=== PATIENT | female | born 1940 | race Caucasian/White ===

== ENCOUNTER → 2018-12-07 | Outpatient (CLI) | payer MEDICAID ==
[~2018-12-07] MED LIST: AMBIEN5 MG PO; ASPIRIN81 M1 PO; BACTRIM 400 MG-1 TAB PO; BACTRIM DS 8001 TA1 PO; CIPRO250 MG PO; CIPRO500 MG PO; DAILY VITE W/IR1 TA1 PO; DITROPAN XL5 MG PO; DITROPAN5 MG PO; DULCOLAX10 M1 RC; EFFEXOR XR75 M1 PO; FOSAMAX70 M1 PO; HYDROCODONE BIT1 T11 PO; MELATONIN5 M1 SL; METFORMIN HYDR500 MG PO; MOM30 M1 PO; NYSTATIN60 GM T; Oscal,Oyster S500 MG PO; PRAVASTATIN SOD20 MG PO; PRILOSEC20 M1 PO; PRINIVIL20 MG PO; PROTONIX40 MG PO; PYRIDIUM200 MG PO; SERTRALINE25 MG PO; TYLENOL ARTHRI650 MG; ULTRAM50 MG PO; VICODIN 5/500 505 MG PO; VITAMIN D34000 UNIT PO; ZOCOR10 MG PO; [UNRECOGNIZED DRUG - OTHER] PO; [UNRECOGNIZED DRUG - OTHER] PO
== END | disposition home or self-care (01) ==
LOC: ORTHO 00:58
DX: M16.11 Unilateral primary osteoarthritis, right hip (principal); M79.651 Pain in right thigh

== ENCOUNTER 2024-01-12 13:20 | Inpatient (IN) | payer MEDICAID ==
[~2024-01-12] VITALS: Ht 165.1 cm; Wt 79.4 kg
[2024-01-12] VITALS (12 sets, daily range): BP systolic 107–125; BP diastolic 54–65
[~2024-01-12 13:20] MED LIST changes: +ARTIFICIAL TEAR1514 OP; +B-12500 MC1 PO; +CYMBALTA60 MG PO; +DULCOLAX10 M1 R; +GLUCAGON EMERGEN1 M1 IJ; +HEMMOREX-HC25 MG R; +INSULIN GL100 UNIT/1 SQ; +Ipratropium Brom3 ML INH; +MELATONIN3 MG PO; +MILK OF MA400 MG/53 PO; +MYLANTA COAT-C355 ML PO; +RIVASTIGMINE TAR6 M1 PO; +SEPTDS PO; +TYLENOL325 M1 PO; +VITAMIN D350 MC2 GT; +VOLTAREN ARTHRI20 GM T; +XALATAN 0.005%2.5 ML INTRAOC
[2024-01-12 14:15] LABS: HEMATOCRIT 20.8 % (37.0-47.0)
[2024-01-12 14:22] LABS: ACT PARTIAL THROMBO TIME 27.3 SECONDS (20.0-32.1)
[2024-01-12] MEDS ORDERED: Pantoprazole Sodium 40 MG VIAL IV ONE (14:45)
[2024-01-12] MEDS ORDERED: BISACODYL 5 MG TAB PO PRN (15:30)
[2024-01-12] MEDS ORDERED: Ondansetron Hydrochloride 4 MG/2 ML VIAL IV PRN (15:30)
[2024-01-12] MEDS ORDERED: DEXTROSE 10 % IN WATER 250 ML IV PRN (15:30)
[2024-01-12] MEDS ORDERED: BISACODYL 10 MG SUPP R PRN (15:30)
[2024-01-12] MEDS ORDERED: ACETAMINOPHEN 325 MG TAB PO PRN ×2 (15:30)
[2024-01-12] MEDS ORDERED: SODIUM CHLORIDE 0.9% 1,000 ML IV ONE (15:40)
[2024-01-12] MEDS ORDERED: INSULIN LISPRO 1 UNIT/0.01 ML SQ SCH (16:30)
[2024-01-12] MEDS ORDERED: Rivastigmine Tartrate 3 MG CAP PO SCH (22:00)
[2024-01-12 22:04] LABS: HEMATOCRIT 21.3 % (37.0-47.0); MEAN CELL VOLUME 91.8 fl (81.0-99.0); MEAN CORPUSCULAR HGB 28.9 pg (27.0-31.0); MEAN CORPUSCULAR HGB CONC 31.5 g/dl (33.0-37.0); MEAN PLATELET VOLUME 8.8 fl (9.6-12.3); PLATELET COUNT AUTOMATED 113 10*3/uL (130-400); RED BLOOD COUNT 2.32 10*6/uL (4.10-5.10); RED CELL DISTRI WIDTH 16.8 % (0-14.5); WHITE BLOOD COUNT 4.8 10*3/uL (4.8-10.8)
[2024-01-12 22:08] LABS: MANUAL DIFF REFLEX YES
[2024-01-12] MEDS ORDERED: SODIUM CHLORIDE 0.9% 500 ML IV ONE (23:07)
[2024-01-12 23:16] LABS: TOTAL CELLS COUNTED 100 #CELLS
[2024-01-12 23:17] LABS: PLATELET SUFFICIENCY LOW (NORMAL)
[2024-01-12 23:19] LABS: OVALOCYTES FEW; ROULEAUX SLIGHT
[2024-01-13] VITALS (9 sets, daily range): BP systolic 105–139; BP diastolic 51–73
[2024-01-13 05:54] LABS: BILIRUBIN Negative (Negative); BLOOD Negative (Negative); CLARITY Clear (Clear); COLOR Yellow (Yellow); GLUCOSE Negative (Negative); KETONE Negative (Negative); LEUKO ESTERASE Negative (Negative); NITRITE Negative (Negative); PH 5.5 (4.5-8.0); UROBILINOGEN 0.2 E.U./dl (0.0-1.0)
[2024-01-13] MEDS ORDERED: Pantoprazole Sodium 40 MG TAB PO SCH (06:00)
[2024-01-13 06:38] LABS: BASO % 0.4 % (0.0-1.0); EOS # 0.2 10*3/uL (0.0-0.4); EOS % 3.1 % (1.0-4.0); HEMATOCRIT 24.2 % (37.0-47.0); LYMPH # 1.6 10*3/uL (1.3-4.4); LYMPH % 30.3 % (27.0-41.0); MEAN CELL VOLUME 91.3 fl (81.0-99.0); MEAN CORPUSCULAR HGB 28.7 pg (27.0-31.0); MEAN CORPUSCULAR HGB CONC 31.4 g/dl (33.0-37.0); MEAN PLATELET VOLUME 9.2 fl (9.6-12.3); MONO # 0.4 10*3/uL (0.1-1.0); MONO % 8.1 % (3.0-9.0); NEUT % 57.5 % (47.0-73.0); PLATELET COUNT AUTOMATED 122 10*3/uL (130-400); RED BLOOD COUNT 2.65 10*6/uL (4.10-5.10); WHITE BLOOD COUNT 5.2 10*3/uL (4.8-10.8)
[2024-01-13 06:41] LABS: BACTERIA 1+
[2024-01-13 07:15] LABS: ALKALINE PHOSPHATASE 75 U/L (46-116); BUN 48 mg/dl (9-23); CHLORIDE 102 mmol/L (98-107); POTASSIUM 4.1 mmol/L (3.4-5.1); TOTAL PROTEIN 6.5 gm/dL (6.0-8.0)
[2024-01-13 07:27] LABS: VITAMIN D, 25-HYDROXY 96.8 ng/mL (30-100)
[2024-01-13] MEDS ORDERED: Insulin Glargine, Recombinan 1 UNIT/0.01 ML SC SCH (07:30)
[2024-01-13 07:31] LABS: SGPT/ALT < 7 U/L (5-49)
[2024-01-13] MEDS ORDERED: SODIUM CHLORIDE 0.9% 1,000 ML IV ONE (07:50)
[2024-01-13] MEDS ORDERED: CYANOCOBALAMIN 500 MCG TAB PO SCH (10:00)
[2024-01-13] MEDS ORDERED: Duloxetine Hydrochloride 60 MG CAP PO SCH (10:00)
[2024-01-13] MEDS ORDERED: Menthol/Zinc Oxide 4 GM THIN T SCH (18:00)
[2024-01-14] VITALS: BP 141/72
[2024-01-14 06:16] LABS: BASO % 0.3 % (0.0-1.0); EOS # 0.2 10*3/uL (0.0-0.4); EOS % 3.4 % (1.0-4.0); HEMATOCRIT 25.1 % (37.0-47.0); LYMPH # 1.7 10*3/uL (1.3-4.4); LYMPH % 29.5 % (27.0-41.0); MEAN CELL VOLUME 90.3 fl (81.0-99.0); MEAN CORPUSCULAR HGB 29.5 pg (27.0-31.0); MEAN CORPUSCULAR HGB CONC 32.7 g/dl (33.0-37.0); MEAN PLATELET VOLUME 9.5 fl (9.6-12.3); MONO # 0.5 10*3/uL (0.1-1.0); MONO % 9.3 % (3.0-9.0); NEUT # 3.3 10*3/uL (2.3-7.9); NEUT % 57.2 % (47.0-73.0); PLATELET COUNT AUTOMATED 120 10*3/uL (130-400); RED BLOOD COUNT 2.78 10*6/uL (4.10-5.10); RED CELL DISTRI WIDTH 16.7 % (0-14.5); WHITE BLOOD COUNT 5.8 10*3/uL (4.8-10.8)
[2024-01-14 07:20] LABS: POTASSIUM 4.3 mmol/L (3.4-5.1)
[2024-01-14 08:00] VITALS: BP 140/60
[2024-01-14 08:11] LABS: HEMOGOLBIN A1C 5.3 % (4.8-5.6)
== END 2024-01-14 12:40 | DRG 422 ==
LOC: ED 13:20 → 4E 14:46 → EDHOLD 14:46 → 4E 01-13 14:13
PROVIDERS: Emergency Medicine; Registered Nurse; ADMIT Internal Medicine; ATTEND Internal Medicine
PROC: 30233N1 Transfusion of Nonautologous Red Blood Cells into Peripheral Vein, Percutaneous Approach (ICD-10-PCS; principal; 2024-01-12)
DX: E86.0 Dehydration (principal); E43 Unspecified severe protein-calorie malnutrition; D63.1 Anemia in chronic kidney disease; I12.9 Hypertensive chronic kidney disease with stage 1 through stage 4 chronic kidney disease, or unspecified chronic kidney disease; N18.4 Chronic kidney disease, stage 4 (severe); E83.52 Hypercalcemia; F03.90 Unspecified dementia, unspecified severity, without behavioral disturbance, psychotic disturbance, mood disturbance, and anxiety; I25.10 Atherosclerotic heart disease of native coronary artery without angina pectoris; F32.A Depression, unspecified; K57.90 Diverticulosis of intestine, part unspecified, without perforation or abscess without bleeding; M81.0 Age-related osteoporosis without current pathological fracture; D64.9 Anemia, unspecified; E78.5 Hyperlipidemia, unspecified; E11.22 Type 2 diabetes mellitus with diabetic chronic kidney disease; Z66 Do not resuscitate; Z91.040 Latex allergy status; Z83.3 Family history of diabetes mellitus; Z82.49 Family history of ischemic heart disease and other diseases of the circulatory system; Z90.49 Acquired absence of other specified parts of digestive tract; Z68.29 Body mass index [BMI] 29.0-29.9, adult

== ENCOUNTER 2024-01-22 22:22 | Inpatient (IN) | payer MEDICAID ==
[~2024-01-22] VITALS: Ht 152.4 cm; Wt 74.8 kg
[2024-01-22] MEDS ORDERED: SODIUM CHLORIDE 0.9% 500 ML IV ONE (22:35)
[2024-01-22 22:43] VITALS: BP 109/49
[2024-01-22 22:50] LABS: BASO % 0.5 % (0.0-1.0); EOS # 0.1 10*3/uL (0.0-0.4); EOS % 3.1 % (1.0-4.0); HEMATOCRIT 23.4 % (37.0-47.0); LYMPH # 1.2 10*3/uL (1.3-4.4); LYMPH % 31.9 % (27.0-41.0); MEAN CORPUSCULAR HGB 28.9 pg (27.0-31.0); MEAN CORPUSCULAR HGB CONC 32.5 g/dl (33.0-37.0); MEAN PLATELET VOLUME 9.8 fl (9.6-12.3); MONO # 0.4 10*3/uL (0.1-1.0); MONO % 11.2 % (3.0-9.0); PLATELET COUNT AUTOMATED 137 10*3/uL (130-400); RED BLOOD COUNT 2.63 10*6/uL (4.10-5.10); RED CELL DISTRI WIDTH 15.5 % (0-14.5); WHITE BLOOD COUNT 3.8 10*3/uL (4.8-10.8)
[2024-01-22 23:31] LABS: POTASSIUM 4.3 mmol/L (3.4-5.1)
[2024-01-23] VITALS (8 sets, daily range): BP systolic 80–114; BP diastolic 23–60
[2024-01-23] MEDS ORDERED: Acetaminophen/Hydrocodone 5 MG/325 MG TABLET PO PRN (00:45)
[2024-01-23] MEDS ORDERED: Ondansetron Hydrochloride 4 MG/2 ML VIAL IV PRN (00:45)
[2024-01-23] MEDS ORDERED: MORPHINE Sulfate 2 MG/ML SYR IV PRN (00:45)
[2024-01-23] MEDS ORDERED: DEXTROSE 10 % IN WATER 250 ML IV PRN (01:05)
[2024-01-23] MEDS ORDERED: SODIUM CHLORIDE 0.9% 1,000 ML IV ONE ×2 (01:05→15:55)
[2024-01-23] MEDS ORDERED: DEXTROSE 10 % IN WATER 250 ML IV ONE (01:20)
[2024-01-23] MEDS ORDERED: DAILY PROBIOTI250 MG PO (06:33)
[2024-01-23] MEDS ORDERED: VANCOCIN125 MG PO (06:35)
[2024-01-23] MEDS ORDERED: INSULIN LISPRO 1 UNIT/0.01 ML SQ SCH (07:30)
[2024-01-23 09:55] LABS: BILIRUBIN Negative (Negative); BLOOD 2+ (Negative); CLARITY Turbid (Clear); COLOR Yellow (Yellow); GLUCOSE Negative (Negative); KETONE Negative (Negative); LEUKO ESTERASE 3+ (Negative); NITRITE Negative (Negative); PH 6.5 (4.5-8.0); SPECIFIC GRAVITY 1.015 (1.001-1.030); UROBILINOGEN 0.2 E.U./dl (0.0-1.0)
[2024-01-23] MEDS ORDERED: HEPARIN SODIUM 5,000 UNIT/ML VIAL SC SCH (10:00)
[2024-01-23] MEDS ORDERED: VANCOMYCIN HCL 125 MG CAPSULE PO SCH (10:00)
[2024-01-23 10:12] LABS: BACTERIA 2+; WBC TNTC wbc/hpf (0-5)
[2024-01-23] MEDS ORDERED: Albuterol Sulf/Ipratropium 3 ML VIAL NEB PRN (13:30)
[2024-01-23] MEDS ORDERED: Menthol/Zinc Oxide 4 GM THIN T PRN (13:35)
[2024-01-23] MEDS ORDERED: HEEL PROTECTOR DEVICE ONE (14:31)
[2024-01-23] MEDS ORDERED: FOAM BANDAGE 1 EACH BANDAGE T ONE (14:31)
[2024-01-23] MEDS ORDERED: FOAM BANDAGE HEEL T ONE (14:31)
[2024-01-23] MEDS ORDERED: CHAIR CUSHION DEVICE ONE (14:32)
[2024-01-23] MEDS ORDERED: Lactobacillus Acidophilus/LA 1 TAB TAB PO SCH (18:00)
[2024-01-23] MEDS ORDERED: Ceftriaxone Sodium 1 GM in SYRINGE INFUSION 10 ML IV SCH (18:00)
[2024-01-23] MEDS ORDERED: Midodrine Hydrochloride 5 MG TAB PO ONE (20:50)
[2024-01-23] MEDS ORDERED: Menthol/Zinc Oxide 4 GM THIN T SCH (22:00)
[2024-01-23] MEDS ORDERED: Rivastigmine Tartrate 3 MG CAP PO SCH (22:00)
[2024-01-23] MEDS ORDERED: DICLOFENAC SODIUM 100 GM TUBE T SCH (22:00)
[2024-01-24 00:21] VITALS: BP 96/45
[2024-01-24] MEDS ORDERED: ZOLEDRONIC ACID IV ONE (02:35)
[2024-01-24] MEDS ORDERED: SODIUM CHLORIDE 0.9% IV ONE (02:35)
[2024-01-24 04:30] VITALS: BP 113/44
[2024-01-24 06:09] LABS: BASO % 0.3 % (0.0-1.0); EOS # 0.2 10*3/uL (0.0-0.4); EOS % 4.3 % (1.0-4.0); LYMPH # 1.4 10*3/uL (1.3-4.4); LYMPH % 41.3 % (27.0-41.0); MEAN CORPUSCULAR HGB 29.1 pg (27.0-31.0); MEAN CORPUSCULAR HGB CONC 31.7 g/dl (33.0-37.0); MEAN PLATELET VOLUME 9.5 fl (9.6-12.3); MONO # 0.4 10*3/uL (0.1-1.0); MONO % 10.6 % (3.0-9.0); NEUT # 1.5 10*3/uL (2.3-7.9); NEUT % 42.9 % (47.0-73.0); PLATELET COUNT AUTOMATED 110 10*3/uL (130-400); RED BLOOD COUNT 2.61 10*6/uL (4.10-5.10); RED CELL DISTRI WIDTH 15.6 % (0-14.5); WHITE BLOOD COUNT 3.5 10*3/uL (4.8-10.8)
[2024-01-24 06:32] LABS: ALKALINE PHOSPHATASE 64 U/L (46-116); CHLORIDE 102 mmol/L (98-107); POTASSIUM 4.3 mmol/L (3.4-5.1); TOTAL PROTEIN 6.4 gm/dL (6.0-8.0)
[2024-01-24 06:49] LABS: BUN 51 mg/dl (9-23); SGPT/ALT < 7 U/L (5-49)
[2024-01-24 08:00] VITALS: BP 109/56
[2024-01-24] MEDS ORDERED: CYANOCOBALAMIN 500 MCG TAB PO SCH (10:00)
[2024-01-24] MEDS ORDERED: methylPREDNISolone sod succ 125 MG VIAL IV SCH (10:00)
[2024-01-24] MEDS ORDERED: Cholecalciferol 2,000 UNIT TABLET (50 MCG) PO SCH (10:00)
[2024-01-24] MEDS ORDERED: Duloxetine Hydrochloride 60 MG CAP PO SCH (10:00)
[2024-01-24] MEDS ORDERED: SODIUM CHLORIDE 0.9% 100 ML BAG IV ONE (11:53)
[2024-01-24 12:00] VITALS: BP 130/55
[2024-01-24] MEDS ORDERED: SODIUM CHLORIDE 0.9% 1,000 ML IV SCH (15:00)
[2024-01-24 16:00] VITALS: BP 145/55
[2024-01-24 20:00] VITALS: BP 129/75
[2024-01-25] VITALS: BP 147/72
[2024-01-25] MEDS ORDERED: FOAM BANDAGE 1 EACH BANDAGE T ONE ×2 (00:59→08:51)
[2024-01-25 06:45] LABS: BASO % 0.2 % (0.0-1.0); HEMATOCRIT 22.6 % (37.0-47.0); LYMPH # 1.4 10*3/uL (1.3-4.4); LYMPH % 32.9 % (27.0-41.0); MEAN CORPUSCULAR HGB 28.7 pg (27.0-31.0); MEAN CORPUSCULAR HGB CONC 31.9 g/dl (33.0-37.0); MEAN PLATELET VOLUME 9.9 fl (9.6-12.3); MONO # 0.3 10*3/uL (0.1-1.0); MONO % 7.1 % (3.0-9.0); NEUT # 2.6 10*3/uL (2.3-7.9); NEUT % 59.1 % (47.0-73.0); PLATELET COUNT AUTOMATED 114 10*3/uL (130-400); RED BLOOD COUNT 2.51 10*6/uL (4.10-5.10); RED CELL DISTRI WIDTH 15.2 % (0-14.5); WHITE BLOOD COUNT 4.4 10*3/uL (4.8-10.8)
[2024-01-25 06:46] LABS: POTASSIUM 4.6 mmol/L (3.4-5.1)
[2024-01-25 08:00] VITALS: BP 129/56
[2024-01-25 12:00] VITALS: BP 132/54
[2024-01-25 16:00] VITALS: BP 128/48
[2024-01-25 20:00] VITALS: BP 151/76
[2024-01-26] VITALS: BP 148/82
[2024-01-26 06:16] LABS: POTASSIUM 4.6 mmol/L (3.4-5.1)
[2024-01-26 06:21] LABS: LYMPH # 1.2 10*3/uL (1.3-4.4); LYMPH % 24.4 % (27.0-41.0); MEAN CELL VOLUME 89.7 fl (81.0-99.0); MEAN CORPUSCULAR HGB CONC 32.3 g/dl (33.0-37.0); MEAN PLATELET VOLUME 9.6 fl (9.6-12.3); MONO # 0.3 10*3/uL (0.1-1.0); MONO % 5.8 % (3.0-9.0); NEUT # 3.5 10*3/uL (2.3-7.9); PLATELET COUNT AUTOMATED 115 10*3/uL (130-400); RED CELL DISTRI WIDTH 15.2 % (0-14.5)
[2024-01-26 08:00] VITALS: BP 145/73
[2024-01-26 12:00] VITALS: BP 155/76
[2024-01-26 16:00] VITALS: BP 134/64
[2024-01-26 20:00] VITALS: BP 130/63
[2024-01-27] VITALS: BP 136/68
[2024-01-27 05:49] LABS: POTASSIUM 4.3 mmol/L (3.4-5.1)
[2024-01-27 06:22] LABS: HEMATOCRIT 23.5 % (37.0-47.0); LYMPH # 1.2 10*3/uL (1.3-4.4); LYMPH % 24.1 % (27.0-41.0); MEAN CORPUSCULAR HGB 29.2 pg (27.0-31.0); MEAN CORPUSCULAR HGB CONC 33.2 g/dl (33.0-37.0); MEAN PLATELET VOLUME 9.7 fl (9.6-12.3); MONO # 0.3 10*3/uL (0.1-1.0); MONO % 6.6 % (3.0-9.0); NEUT # 3.4 10*3/uL (2.3-7.9); NEUT % 68.9 % (47.0-73.0); PLATELET COUNT AUTOMATED 130 10*3/uL (130-400); RED BLOOD COUNT 2.67 10*6/uL (4.10-5.10); RED CELL DISTRI WIDTH 15.3 % (0-14.5)
[2024-01-27 08:00] VITALS: BP 138/85
[2024-01-27 12:00] VITALS: BP 106/42
[2024-01-27 16:00] VITALS: BP 148/68
[2024-01-27 20:00] VITALS: BP 156/83
[2024-01-28] VITALS: BP 147/78
[2024-01-28 06:16] LABS: POTASSIUM 4.4 mmol/L (3.4-5.1)
[2024-01-28 06:50] LABS: HEMATOCRIT 25.7 % (37.0-47.0); LYMPH # 1.1 10*3/uL (1.3-4.4); LYMPH % 22.5 % (27.0-41.0); MEAN CELL VOLUME 90.5 fl (81.0-99.0); MEAN CORPUSCULAR HGB 28.9 pg (27.0-31.0); MEAN CORPUSCULAR HGB CONC 31.9 g/dl (33.0-37.0); MEAN PLATELET VOLUME 9.9 fl (9.6-12.3); MONO # 0.5 10*3/uL (0.1-1.0); MONO % 9.7 % (3.0-9.0); NEUT # 3.2 10*3/uL (2.3-7.9); PLATELET COUNT AUTOMATED 125 10*3/uL (130-400); RED BLOOD COUNT 2.84 10*6/uL (4.10-5.10); RED CELL DISTRI WIDTH 15.3 % (0-14.5); WHITE BLOOD COUNT 4.8 10*3/uL (4.8-10.8)
[2024-01-28 08:00] VITALS: BP 153/93
[2024-01-28 15:07] LABS: A/G RATIO 0.7 (0.7-1.7); ALBUMIN 2.5 g/dL (2.9-4.4); ALPHA-1-GLOBULIN 0.4 g/dL (0.0-0.4); ALPHA-2-GLOBULIN 0.9 g/dL (0.4-1.0); BETA GLOBULIN 0.8 g/dL (0.7-1.3); GAMMA GLOBULIN 1.5 g/dL (0.4-1.8); GLOBULIN, TOTAL 3.6 g/dL (2.2-3.9); TOTAL PROTEIN, SERUM 6.1 g/dL (6.0-8.5)
== END 2024-01-28 15:45 | DRG 720 ==
LOC: ED 22:22 → EDHOLD 01-23 00:09 → 4E 01-23 00:09 → EDHOLD 01-23 01:02 → 4E 01-23 12:38
PROVIDERS: Internal Medicine; Student in an Organized Health Care Education/Training Program; ADMIT Internal Medicine; ATTEND Internal Medicine
DX: A41.9 Sepsis, unspecified organism (principal); N17.0 Acute kidney failure with tubular necrosis; G93.41 Metabolic encephalopathy; A04.72 Enterocolitis due to Clostridium difficile, not specified as recurrent; E43 Unspecified severe protein-calorie malnutrition; D61.818 Other pancytopenia; E87.1 Hypo-osmolality and hyponatremia; E11.649 Type 2 diabetes mellitus with hypoglycemia without coma; R65.20 Severe sepsis without septic shock; Z66 Do not resuscitate; D64.9 Anemia, unspecified; F32.9 Major depressive disorder, single episode, unspecified; I25.10 Atherosclerotic heart disease of native coronary artery without angina pectoris; E20.89 Other specified hypoparathyroidism; F03.90 Unspecified dementia, unspecified severity, without behavioral disturbance, psychotic disturbance, mood disturbance, and anxiety; N39.0 Urinary tract infection, site not specified; J44.9 Chronic obstructive pulmonary disease, unspecified; B96.4 Proteus (mirabilis) (morganii) as the cause of diseases classified elsewhere; E11.22 Type 2 diabetes mellitus with diabetic chronic kidney disease; I12.9 Hypertensive chronic kidney disease with stage 1 through stage 4 chronic kidney disease, or unspecified chronic kidney disease; N18.4 Chronic kidney disease, stage 4 (severe); K57.30 Diverticulosis of large intestine without perforation or abscess without bleeding; Z79.4 Long term (current) use of insulin; Z90.49 Acquired absence of other specified parts of digestive tract; Z83.3 Family history of diabetes mellitus; Z91.040 Latex allergy status; Z79.899 Other long term (current) drug therapy

== ENCOUNTER 2024-04-29 12:09 | Emergency (ER) | payer MEDICAID ==
[~2024-04-29 12:09] MED LIST changes: +DAILY PROBIOTI250 MG PO; +VANCOCIN125 MG PO
[2024-04-29] MEDS ORDERED: Tdap Vaccine 0.5 ML SYR (Adult Vaccine) IM ONE (15:00)
== END 2024-04-29 16:07 ==
LOC: ED 12:09
DX: S00.03XA Contusion of scalp, initial encounter (principal); F41.9 Anxiety disorder, unspecified; K21.9 Gastro-esophageal reflux disease without esophagitis; I10 Essential (primary) hypertension; E11.9 Type 2 diabetes mellitus without complications; E78.00 Pure hypercholesterolemia, unspecified; M25.552 Pain in left hip; M25.551 Pain in right hip; R51.9 Headache, unspecified; Z91.040 Latex allergy status; Z90.710 Acquired absence of both cervix and uterus; Z90.49 Acquired absence of other specified parts of digestive tract; Z98.890 Other specified postprocedural states; W05.0XXA Fall from non-moving wheelchair, initial encounter; Y93.89 Activity, other specified; Y92.129 Unspecified place in nursing home as the place of occurrence of the external cause; Y99.8 Other external cause status